=== PATIENT | male | born 1985 | race Caucasian/White ===

== ENCOUNTER 2017-04-05 23:05 | Inpatient (IN) ==
[2017-04-05] MEDS ORDERED: Vancomycin 1,500 MG in D5% in Water 250 ML IVPB ONE (23:45)
[2017-04-05] MEDS ORDERED: 0.9 % Sodium Chloride 1,000 ML IVC ONE (23:58)
--- NOTE | 2017-04-06 00:08 | Emergency Department Note ---
Disposition Clinical Impression: Abscess of skin or subcutaneous tissue Qualifiers: Site of cutaneous abscess: extremity Site of cutaneous abscess of extremity: upper extremity Laterality: left Qualified Code(s): L02.414 - Cutaneous abscess of left upper limb Cellulitis Qualifiers: Site of cellulitis: extremity Site of cellulitis of extremity: upper extremity Laterality: left Qualified Code(s): L03.114 - Cellulitis of left upper limb Disposition: Admitted As Inpatient Condition: Fair Time of Disposition: 03:00 Skin/Abscess/FB HPI Chief complaint: ED Skin/Abscess/Foreign Body Stated complaint: "Infection left arm" Time Seen by Provider: 04/05/17 23:15 Source: patient Limitations: no limitations Nursing Notes Reviewed: Yes Vital Signs Reviewed: Yes HPI Narrative: Patient is a 31-year-old male who presents to [facility] ED with a chief complaint of left arm infection. Patient is a known IV drug user and last injected approximately 2 weeks ago. One week ago, he had worsening redness of his right upper extremity. He now has pain with bending his arm. Denies any known fevers or chills. No chest pain, difficulty breathing, abdominal pain, problems with urination or bowel movements. Onset (ago): day(s) Tetanus Up to Date: yes Location: LUE Severity: severe Severity scale (1-10): 10 Quality: aching Consistency: constant Improves with: none Worsens with: none Context: IVDA Associated symptoms: Denies: fever, chills, nausea, vomiting, shortness of breath Treatments prior to arrival: none Previous Rx's Medication Instructions Recorded Amoxicillin 875 mg PO BID #20 tablet 04/05/16 Ibuprofen [Motrin] 800 mg PO Q8HR PRN #30 tablet 04/05/16 Magic Mouthwash 5 ml PO TID PRN #120 ml 04/05/16 Magic Mouthwash 5 ml PO TID PRN #120 ml 04/05/16 Polymyxn-B/Trimeth Opth Drops 1 drop LEFT EYE QID 7 Days bottle 04/05/16 [Polytrim Opth Drops] Ibuprofen [Motrin] 600 mg PO Q8HR #20 tab 04/24/16 Allergies Allergy/AdvReac Type Severity Reaction Status Date / Time No Known Allergies Allergy Verified 04/24/16 22:02 All systems ED: reviewed and negative except as stated. Past Medical History - Past Medical History Attestation: Yes The following information was validated with the patient. Source: patient Medical history: Reports: other Surgical history: Reports: no surgical history Psychiatric history: Reports: no psych history - Social History Smoking Status: Current every day smoker Smokeless Tobacco Status: No Alcohol use: Reports: occasionally Drug use: Reports: opiates, marijuana, IV Drug Use, prescription drug abuse Physical Exam - General Limitations: no limitations General appearance: alert, in no apparent distress - Head Head exam: atraumatic, normocephalic, normal inspection - Eye Eye exam: Present: normal appearance, EOMI - ENT ENT exam: normal exam, normal oropharynx, mucous membranes moist - Neck Neck exam: Present: normal inspection, full ROM, trachea midline - Chest Chest inspection: Present: normal inspection, symmetric chest wall rise - Respiratory Respiratory exam: Present: normal lung sounds bilaterally - Cardiovascular Cardiovascular exam: Present: normal rhythm, tachycardia - Abdominal Exam Abdominal exam: Present: soft, Non-Tender. Absent: tenderness, distention, guarding, rebound, rigidity - Expanded Upper Extremity Exam Arm exam: Present: tenderness, swelling, erythema - Back Exam Back exam: Present: normal inspection, full ROM. Absent: tenderness - Neurological Exam Neurological exam: Present: alert, oriented X3 - Psychiatric Psychiatric exam: Present: normal affect, normal mood - Skin Skin exam: Present: warm, dry, intact, erythema (LUE) Course Course Narrative: Patient seen and examined. Left upper extremity pain, swelling, erythema. Concern for cellulitis/abscess formation. We will get a CT of the arm with IV contrast. We will get CBC, BMP, lactate, blood cultures. We will go ahead and start her on IV vancomycin as well. - Reevaluation(s) Reevaluation #1: Lab work appeared unremarkable. CT of the arm showed abscess in the antecubital fossa that was deep to superficial vein. Will admit for continued IV antibiotics. Added clindamycin as well. Patient needs incision and drainage of this in the OR. I discussed with orthopedics surgeon Dr. Bonilla who states they will likely dual incision and drainage of this today and patient will be need to be Nothing by mouth. Time: 03:00 Vital Signs Temperature 98.7 F 04/05/17 23:06 Pulse Rate 105 04/05/17 23:06 Respiratory Rate 18 04/05/17 23:06 Blood Pressure 152/98 04/05/17 23:06 O2 Sat by Pulse Oximetry 99 04/05/17 23:06 Temperature 97.8 F 04/06/17 06:46 Pulse Rate 69 04/06/17 06:46 Respiratory Rate 18 04/06/17 06:46 Blood Pressure 134/94 04/06/17 06:46 O2 Sat by Pulse Oximetry 100 04/06/17 06:46 Oxygen Delivery Oxygen Delivery Room Air Skin/Abscess/Foreign Body - Medical Records Medical records reviewed: Yes I reviewed the patient's medical records. - Lab Data Lab results reviewed: Yes I reviewed the patient's lab results. Result diagrams: 04/06/17 00:13 04/06/17 00:13 Lab Results 04/06/17 04/06/17 04/06/17 Range/Units 00:13 00:13 00:13 WBC 8.3 (4.3-11.1) K/mcL RBC 5.66 H (4.19-5.50) M/mcL Hgb 16.7 (12.9-16.9) g/dL Hct 49.7 (37.5-50.1) % MCV 87.8 (83.0-100.0) fL MCH 29.5 (28.0-33.3) pg MCHC 33.6 (31.6-35.5) g/dL RDW 12.9 (11.5-14.5) % Plt Count 289 (140-400) K/mcL MPV 9.1 L (9.4-12.4) fL Immature Gran % 0.4 (0-4) % Seg Neutrophils % 55.1 % Lymphocytes % 30.4 % Monocytes % 11.8 % Eosinophils % 1.5 % Basophils % 0.8 % Neutrophils # 4.6 (1.6-8.9) K/mcL Lymphocytes # 2.5 (0.6-4.6) K/mcL Monocytes # 1.0 (0.0-1.3) K/mcL Eosinophils # 0.1 (0.0-0.6) K/mcL Basophils # 0.1 (0.0-0.2) K/mcL Sodium 135 L (136-145) mEq/L Potassium 4.0 (3.5-4.5) mEq/L Chloride 99 (98-109) mEq/L Carbon Dioxide 24 (19-29) mEq/L BUN 7 L (8-26) mg/dL Creatinine 1.09 (0.72-1.25) mg/dL Est GFR ( Amer) > 60 (> 60) Est GFR (Non-Af Amer) > 60 (> 60) BUN/Creatinine Ratio 6 (6-26) Glucose 87 (70-99) mg/dL Calculated Osmolality 277 L (280-300) Lactic Acid 1.7 (0.5-2.2) mmol/L Calcium 10.4 (8.6-10.8) mg/dL - Radiology Data Radiology results reviewed: Yes I reviewed the patient's radiology results. Upper Extremity CT 04/05/17 23:56 IMPRESSION: 1. Soft tissue abscess, 0.9 x 0.6 cm, in the antecubital fossae, approximately 2 cm deep to the skin surface and deep to a superficial vein. 2. Skin thickening and subcutaneous edema of the antecubital fossa compatible with cellulitis. 3. No evidence of soft tissue gas or radiopaque foreign body. 4. No acute osseous finding or CT evidence of osteomyelitis. D/ / Trevon Moulton MD / Trevon Moulton MD Interpreting Provider: Trevon Moulton MD Attestation Statement - Attestation Attestation: I examined this patient and my medical decision-making was reviewed with the Resident Physician. I agree with the documented findings, disposition and treatment plan as described except to the extent set forth below. Patient either vomiting or redness in his left arm. Onset a week ago. Patient has a history of IV drug use, but states he last used 2 weeks ago. He states his pain worsened after he was carrying some groceries. On examination he has swelling and induration to the left antecubital fossa. Erythema extending into the forearm. He is unable to extend his arm. Plan. Septic workup with CT scan. Starting IV antibiotic.
[2017-04-06 00:26] LABS: Basophils # 0.1 K/mcL (0.0-0.2); Basophils % 0.8 %; Eosinophils # 0.1 K/mcL (0.0-0.6); Eosinophils % 1.5 %; Hematocrit 49.7 % (37.5-50.1); Hemoglobin 16.7 g/dL (12.9-16.9); Immature Granulocytes % 0.4 % (0-4); Lymphocytes # 2.5 K/mcL (0.6-4.6); Lymphocytes % 30.4 %; Mean Corpuscular HGB Conc 33.6 g/dL (31.6-35.5); Mean Corpuscular Hemoglobin 29.5 pg (28.0-33.3); Mean Corpuscular Volume 87.8 fL (83.0-100.0); Mean Platelet Volume 9.1 fL (9.4-12.4); Monocytes % 11.8 %; Neutrophils # 4.6 K/mcL (1.6-8.9); Platelet Count 289 K/mcL (140-400); Red Blood Count 5.66 M/mcL (4.19-5.50); Red Cell Distribution Width 12.9 % (11.5-14.5); Segmented Neutrophils % 55.1 %
[2017-04-06 00:38] LABS: BUN/Creatinine Ratio 6 (6-26); Blood Urea Nitrogen 7 mg/dL (8-26); Calcium 10.4 mg/dL (8.6-10.8); Carbon Dioxide 24 mEq/L (19-29); Chloride 99 mEq/L (98-109); Glucose 87 mg/dL (70-99); Osmolality,Calculated 277 (280-300); Sodium 135 mEq/L (136-145); eGFR For African Americans > 60 (> 60); eGFR For Non-African Americans > 60 (> 60)
[2017-04-06] MEDS ORDERED: Clindamycin 900 MG/50 ML 900 MG/50 ML IV.SOLN IVPB ONE (00:46)
[2017-04-06] MEDS ORDERED: Ketorolac 15 MG/ML VIAL IVP PRN (08:49)
--- NOTE | 2017-04-06 08:53 | Internal Med History&Physical ---
Date of Encounter: 04/06/17 Time of Encounter: 08:51 Assessment and Plan (1) Abscess of skin or subcutaneous tissue Current visit: Yes Status: Acute Patient has cellulitis with abscess formation and antecubital area. We started the patient and vancomycin and Zosyn. Keep NPO and consult orthopedic surgery. Blood cultures were obtained. Patient shares needles with his brother and sister. I have discussed with him regarding blood-borne disease and will check for HIV and hepatitis. Qualifiers: Site of cutaneous abscess: extremity Site of cutaneous abscess of extremity : upper extremity Laterality: left Qualified Code(s): L02.414 - Cutaneous abscess of left upper limb Internal Medicine - H&P: HPI Chief complaint: pain and redeness in left antecubital area History of present illness: Mr. Desir is a 31 year old male who is an IV drug user last injection was 2 weeks ago. Approximately a week ago he started noticing redness warmth tenderness and swelling in the left antecubital area. 2 days ago he started having fevers and chills. He is holding his left upper extremity in flexion to minimize pain. Patient mentions that he shares needles with his brother and sisters. Workup and emergency room showed evidence of an antecubital abscess. Patient denies any chest pain and shortness of breath. Past Med Surg Social Fam HX - Past Medical History Medical history: other Psychiatric history: no psych history - Past Surgical History Surgical History: no surgical history - Social History Smoking Status: Current every day smoker Smokeless Tobacco Status: No Alcohol use: occasionally Drug use: opiates, marijuana, IV Drug Use, prescription drug abuse Internal Medicine - H&P: Meds Amoxicillin 875 mg PO BID #20 tablet 04/05/16 [Rx] Ibuprofen [Motrin] 800 mg PO Q8HR PRN #30 tablet 04/05/16 [Rx] Magic Mouthwash 5 ml PO TID PRN #120 ml 04/05/16 [Rx] Magic Mouthwash 5 ml PO TID PRN #120 ml 04/05/16 [Rx] Polymyxn-B/Trimeth Opth Drops [Polytrim Opth Drops] 1 drop LEFT EYE QID 7 Days bottle 04/05/16 [Rx] Ibuprofen [Motrin] 600 mg PO Q8HR #20 tab 04/24/16 [Rx] 3 Allergy/AdvReac Type Severity Reaction Status Date / Time No Known Allergies Allergy Verified 04/24/16 22:02 All Systems PM: A 10-system review of systems was performed and is negative for pertinent findings except as documented above in the HPI. Review of systems: 1 point review of systems is negative except for HPI - Constitutional Vitals: Temp Pulse Resp BP Pulse Ox 97.8 F 69 18 134/94 100 04/06/17 06:46 04/06/17 06:46 04/06/17 06:46 04/06/17 06:46 04/06/17 06:46 Exam: Gen.: patient is alert oriented times 3 cardiac: normal S1 S2 no additional sounds or murmurs chest: no active wheezing or bronchial breathing abdomen soft nontender nondistended normal bowel sounds lower extremity no swelling. Neuro: no new focal deficits muskloskletal: left antecubital area is red, warm. Patient is holding arm in flexion to minimize pain Internal Med - H&P Results - Labs CBC & Chem 7: 04/06/17 00:13 04/06/17 00:13
[2017-04-06] MEDS ORDERED: Vancomycin 1,250 MG in D5% in Water 250 ML IVPB SCH (09:00)
[2017-04-06 09:16] LABS: Basophils # 0.1 K/mcL (0.0-0.2); Basophils % 0.9 %; Eosinophils # 0.1 K/mcL (0.0-0.6); Hematocrit 43.1 % (37.5-50.1); Immature Granulocytes % 0.1 % (0-4); Lymphocytes # 3.2 K/mcL (0.6-4.6); Lymphocytes % 46.7 %; Mean Corpuscular HGB Conc 33.9 g/dL (31.6-35.5); Mean Corpuscular Hemoglobin 29.8 pg (28.0-33.3); Mean Platelet Volume 9.2 fL (9.4-12.4); Monocytes # 0.8 K/mcL (0.0-1.3); Monocytes % 11.7 %; Neutrophils # 2.6 K/mcL (1.6-8.9); Platelet Count 251 K/mcL (140-400); Segmented Neutrophils % 38.6 %
[2017-04-06 09:22] LABS: BUN/Creatinine Ratio 6 (6-26); Blood Urea Nitrogen 6 mg/dL (8-26); Calcium 9.4 mg/dL (8.6-10.8); Carbon Dioxide 22 mEq/L (19-29); Chloride 104 mEq/L (98-109); Glucose 154 mg/dL (70-99); Osmolality,Calculated 283 (280-300); Potassium 4.1 mEq/L (3.5-4.5); Sodium 136 mEq/L (136-145); eGFR For African Americans > 60 (> 60); eGFR For Non-African Americans > 60 (> 60)
[2017-04-06 09:23] LABS: Hemoglobin 14.6 g/dL (12.9-16.9)
[2017-04-06] MEDS: Famotidine 20 MG/2 ML VIAL IVP SCH (09:25)
--- NOTE | 2017-04-06 10:22 | Orthopedic Consult Note ---
Date of Encounter: 04/06/17 Time of Encounter: 10:19 Assessment and Plan (1) Abscess of skin or subcutaneous tissue Current Visit: Yes Status: Acute Pt is stable and respnding well to IV abx; however, there is a small deep abscess that will need to be drained. Pt just ate. He will be made NPO later and added on for an I&D of his left elbow. The procedure was discussed with the pt, including post-op wound care. Informed consent was obtained. Qualifiers: Site of cutaneous abscess: extremity Site of cutaneous abscess of extremity : upper extremity Laterality: left Qualified Code(s): L02.414 - Cutaneous abscess of left upper limb History of Present Illness Chief complaint: Left Elbow Pain and swelling HPI: Mr. Desir is a 31 year old male with a history of IV drug abuse. Patient states he was shot up in his left elbow 2 weeks ago and started noting setting some redness, swelling and pain over the past week. The pain and redness increased significantly to the point that brought him to the Emergency Room last night. A CT scan performed showed an abscess. Pt noticed the redness down since last night after being placed on IV abx. Pt denies fecers or chills. No prior h/o abscesses. Past Med Surg Social Fam HX - Past Medical History Medical history: other Psychiatric history: no psych history - Past Surgical History Surgical History: no surgical history - Social History Smoking Status: Current every day smoker Smokeless Tobacco Status: No Alcohol use: occasionally Drug use: opiates, marijuana, IV Drug Use, prescription drug abuse Medications and Allergies No Known Home Drugs 04/06/17 [History] 3 Allergy/AdvReac Type Severity Reaction Status Date / Time No Known Allergies Allergy Verified 04/24/16 22:02 All Systems Reviewed: A 10-system review of systems was performed and is negative for pertinent findings except as documented above in the HPI. Physical Exam - Constitutional Vitals: Temp Pulse Resp BP Pulse Ox 97.8 F 69 18 134/94 100 04/06/17 06:46 04/06/17 06:46 04/06/17 06:46 04/06/17 06:46 04/06/17 06:46 - Elbow left Location of pain elbow: anterior Pain modifiers elbow: with motion Stiffness: Yes Swelling: Yes Other symptoms OR: other (+ erythema of antecubittal fossa; Normal hand exam distally. NVID) Tenderness with palpation: other (2 cm indurated area in the antecubital fossa just proximal to the elbow flexion crease but is very tender, skin is warm to touch, no crepitus or fluctuance) Full ROM: yes (with pain) Results - Labs Result Diagrams: 04/06/17 08:55 04/06/17 08:55 Labs: Abnormal lab results MPV 9.2 fL (9.4-12.4) L 04/06/17 08:55 BUN 6 mg/dL (8-26) L 04/06/17 08:55 Glucose 154 mg/dL (70-99) H 04/06/17 08:55 H & H 04/06/17 Range/Units 08:55 Hgb 14.6 D (12.9-16.9) g/dL Hct 43.1 (37.5-50.1) % All other labs normal. - Diagnostic results Elbow CT: report reviewed (0.9 cm abscess in antecub fossa, located deep to large vein) Consult Discharge Plan - Plan Referrals: NONE,PCP [Primary Care Provider] -
[2017-04-06] MEDS: Vancomycin 1,250 MG in D5% in Water 250 ML IVPB SCH (11:38)
[2017-04-06] MEDS: Piperacillin/Tazobactam 3.375 GM in D5% in Water (Mini-Bag+) 100 ML IVPB SCH (15:35)
[2017-04-07] MEDS: Piperacillin/Tazobactam 3.375 GM in D5% in Water (Mini-Bag+) 100 ML IVPB SCH ×2 (00:55→11:56)
[2017-04-07] MEDS: Vancomycin 1,250 MG in D5% in Water 250 ML IVPB SCH (01:02)
[2017-04-07] MEDS ORDERED: *HR* Propofol 200 MG/20 ML VIAL IVP ONE (07:19)
[2017-04-07] MEDS ORDERED: Lidocaine -MPF 2% 2 ML VIAL ONE (07:20)
[2017-04-07] MEDS ORDERED: *HR* Succinylcholine 200 MG/10 ML VIAL IVP ONE (07:20)
[2017-04-07] MEDS ORDERED: *HR* FentaNYL (PF) 100 MCG/2 ML VIAL ONE (07:23)
[2017-04-07] MEDS ORDERED: *HR* Midazolam HCl 2 MG/2 ML VIAL ONE (07:24)
[2017-04-07] MEDS ORDERED: Albuterol 2.5 MG/3 ML NEBULIZER ONE (07:28)
[2017-04-07] MEDS ORDERED: Albuterol 2.5 MG/3 ML NEBULIZER IH ONE (07:30)
[2017-04-07] MEDS ORDERED: Scopolamine Patch 1.5 MG PATCH.TD72 ONE (07:36)
[2017-04-07] MEDS ORDERED: *HR* Promethazine 25 MG/ML VIAL IVP PRN (07:42)
--- NOTE | 2017-04-07 07:42 | Anesthesia Evaluation PreOp ---
Date of Encounter: 04/07/17 Time of Encounter: 07:40 - Past History Planned Operation: I&D LUE Cardiac History: Denies any Significant Hx Pulmonary History: Smoker, JOE Dx (sleep apnea as a child (prior to tonsillectomy)) [employer] History: Denies Any Significant HX Other Medical History: Other (IVDU) Anesthesia History: No Prior Anesthetic Complications (except nausea once), Past Anesthesia (arterial repair upper extremity, tonsillectomy) Alcohol Use: occasionally Drug use: opiates, marijuana, IV Drug Use, prescription drug abuse Medications and Allergies No Known Home Drugs 04/06/17 [History] 3 Allergy/AdvReac Type Severity Reaction Status Date / Time No Known Allergies Allergy Verified 04/24/16 22:02 - Meds/Allergy Pre-op Review Medications Reviewed: Yes Allergies Reviewed: Yes Beta Blockers on Current Med List: No Anesthesia Results - Labs 04/06/17 08:55 04/06/17 08:55 Anesthesia Exam Last Vital Signs Temp 97.8 F 04/07/17 06:49 Pulse 67 04/07/17 06:49 Resp 18 04/07/17 06:49 BP 116/83 04/07/17 06:49 Pulse Ox 99 04/07/17 06:49 Weight: 86 kg NPO (# of Hours): > 8 hrs - HEENT Pupil (Motor): Pupils equal, EOMI Mallampati: II Teeth: Normal Oral Opening: Greater than 3 - [employer] LOC: Oriented - Cardiac Rhythm: Regular Murmur: None - Pulmonary Breath Sounds: bilateral Clear Respiratory Effort: Symmetrical Anesthesia Assess/Plan ASA Score: 2 Modified Yanira Scale for Level of Consciousness: Cooperative, oriented, and tranquil Anesthetic Plan: General Monitoring Plan: Standard Monitors Recovery Plan: PACU
[2017-04-07] MEDS ORDERED: Ringers Solution, Lactated 1,000 ML IVC SCH ×2 (07:45→11:59)
[2017-04-07] MEDS ORDERED: Dexamethasone 4 MG/ML VIAL ONE (09:30)
[2017-04-07] MEDS ORDERED: Ondansetron 4 MG/2 ML VIAL ONE (09:30)
[2017-04-07] MEDS ORDERED: Ketorolac 30 MG/ML VIAL ONE (09:58)
[2017-04-07] MEDS: *HR* HYDROmorphone (PF) 1 MG/ML SYRINGE IVP PRN ×4 (10:18→10:34)
--- NOTE | 2017-04-07 10:25 | Operative Note ---
Date of procedure: 04/07/17 Pre-op diagnosis: Left elbow abscess Post-op diagnosis: same Procedure: Incision and drainage of deep left elbow abscess Anesthesia: NILSA Surgeon: Kalpesh Almanza Estimated blood loss (cc): 10 Tourniquet Time (Minutes): 5 Specimen: Cultures to microbiology Disposition: PACU Procedure in Detail: The patient was brought into the operating room and placed on or table in supine position. He underwent general anesthesia. A tourniquet was placed on his left arm close axilla, and the left upper extremity was prepped and draped in usual sterile fashion. A timeout was performed. The left extremity was elevated, exsanguinated with an Honorio wrap, and the tourniquet was raised to a pressure of 250 mmHg. A 6 cm medial curvilinear incision was made centered over the swollen fluctuant area of the elbow. The incision went from proximal medial curving at the elbow flexion crease and going laterally, going The subcutaneous tissues plane dissected, and and on deeper dissection, a pocket of pus was encountered. Cultures for aerobic and anaerobic were taken and sent off to microbiology. Retractors were used to get good exposure, the pocket was medial to the biceps which was retracted over laterally. The brachialis fascia was incised and the muscle explored. The muscle appeared to be in good condition. The patient had a 30 degree flexion contracture of the elbow, the elbow was gently stretched out , allowing full extension but with some effort. This was due to the swelling and edema within the anterior soft tissue including the muscles. The tourniquet was deflated, once again copiously irrigated with normal saline. The full-thickness skin and subcutaneous tissue was closed with 3-0 nylon vertical mattress and simple sutures. A 1 cm opening was left, and this was filled with quarter-inch iodoform packing. The patient was extubated and taken to the recovery room.
[2017-04-07] MEDS ORDERED: *HR* Morphine 2 MG/ML SYRINGE IVP PRN (10:31)
[2017-04-07] MEDS ORDERED: *HR* Labetalol 20 MG/4 ML SYRINGE IVP ONE (10:37)
[2017-04-07] MEDS ORDERED: *HR* Labetalol 20 MG/4 ML SYRINGE IVP PRN (10:41)
--- NOTE | 2017-04-07 10:54 | Anesthesia Evaluation Post Op ---
Date of Encounter: 04/07/17 Time of Encounter: 10:53 - Vital Signs Vital Signs: Last Vital Signs Temp 97.9 F 04/07/17 10:43 Pulse 77 04/07/17 10:43 Resp 12 04/07/17 10:43 BP 145/99 04/07/17 10:43 Pulse Ox 96 04/07/17 10:43 - Lungs Lungs: Clear Ascult./Percussion - Airway Airway: Non-obstructed - Cardiovascular Regular Rate - Mental Status Mental Status: Alert & Oriented, Answers Appropriately - Pain Pain Scale: 5 - Nausea Vomiting Nausea Vomiting: Not Present - Hydration Hydration: NPO - Discharge PostOp Status: Transfer Patient to floor
[2017-04-07] MEDS: Famotidine 20 MG/2 ML VIAL IVP SCH (11:56)
[2017-04-07] MEDS ORDERED: Ketorolac 15 MG/ML VIAL IVP PRN (11:59)
[2017-04-07] MEDS ORDERED: *HR* OxyCODONE/APAP 5/325 TABLET PO PRN (11:59)
[2017-04-07] MEDS ORDERED: Aminoglycoside Consult 1 EACH MC ONE (12:14)
--- NOTE | 2017-04-07 12:16 | Discharge Summary ---
Date of Encounter: 04/07/17 Time of Encounter: 12:09 - Discharge Diagnosis (1) Abscess of skin or subcutaneous tissue Priority: Primary Status: Acute Qualifiers: Site of cutaneous abscess: extremity Site of cutaneous abscess of extremity : upper extremity Laterality: left Qualified Code(s): L02.414 - Cutaneous abscess of left upper limb (2) Cellulitis Priority: Primary Status: Acute Qualifiers: Site of cellulitis: extremity Site of cellulitis of extremity: upper extremity Laterality: left Qualified Code(s): L03.114 - Cellulitis of left upper limb - Discharge Medications Prescriptions: Doxycycline 100 mg PO BID #14 capsule Home Medications: Doxycycline 100 mg PO BID #14 capsule 04/07/17 [Rx] Allergies/Adverse Reactions: 3 Allergy/AdvReac Type Severity Reaction Status Date / Time No Known Allergies Allergy Verified 04/24/16 22:02 Date of admission: 04/06/17 08:46 Primary care physician: PCP NONE Discharging clinician: Gerard Dee (]) Anticipated date of discharge: 04/07/17 - Patient Status Disposition: Left Against Medical Advice Condition: Fair Functional capacity at discharge: independent ambulation Overall status at discharge: patient is back to baseline - Discharge Instructions Follow Up With: NONE,PCP [Primary Care Provider] - - Diet and Activity Activity: resume usual activities as tolerated Diet: regular diet Interval History: See below Hospital course: Mr. Desir is a 31 year old male , IVDA, admitted for L antecubital cellulitis with deep abscess, seen immediate s/p Incision and drainage by Orthopedics. He reports he is getting dressed and leaving AMA right away He is unwilling to await culture reports He verbalized understanding of the risk of limb loss, sepsis from his cellulitis , septic shock, and Patient is provided scripts for doxycyline po bid for 7 days Follow up with PCP regarding his wound care, he states he will do "whatever" - Time Spent with Patient Total time spent providing and/or coordinating discharge services: Less than 30 minutes - Constitutional Vitals: Temp Pulse Resp BP Pulse Ox 97.9 F 75 16 144/101 98 04/07/17 10:53 04/07/17 10:53 04/07/17 10:53 04/07/17 10:53 04/07/17 10:53 General appearance: Present: A&O X 3, pleasant, no acute distress. Absent: answers questions appropriately - Head Head exam: Present: atraumatic, normocephalic - Eye Eye exam: Present: PERRL, conjuntiva pink, sclera anicteric Pupils: Present: PERRL - Neck Neck exam general surgery: Present: supple, trachea midline. Absent: lymphadenopathy - Respiratory Respiratory exam: Present: CTAB. Absent: accessory muscle use, rales, rhonchi, wheezes - Cardiovascular Cardiovascular exam: Present: RRR, +S1, +S2. Absent: diastolic murmur, gallop, rubs, systolic murmur - GI/Abdominal GI/Abdominal exam: Present: normal bowel sounds, soft, no peritoneal signs. Absent: distended, tenderness - Extremities Exam Extremities exam: Present: warm, radial pulses palpable and symmetrical. Absent : calf tenderness, cyanotic, pedal edema Additional comments: LUE dressing on his antecubital fossa - Neurological Exam Neurological exam: Present: alert, CN II-XII intact, oriented X3, no focal deficits. Absent: pronater drift, facial droop, speech deficit - Skin Skin exam: Present: dry, intact
[2017-04-07] MEDS ORDERED: Piperacillin/Tazobactam 3.375 GM in D5% in Water (Mini-Bag+) 100 ML IVPB SCH (12:30)
[2017-04-07] MEDS ORDERED: Vancomycin 1,250 MG in D5% in Water 250 ML IVPB SCH (13:00)
[2017-04-07 13:06] VITALS: BP 122/87
[2017-04-08 10:47] LABS: HIV-1&2 Antibody & p24 Ag Nonreactive (Nonreactive)
[2017-04-08 10:49] LABS: Hepatitis C Virus Antibody Reactive (Nonreactive)
== END 2017-04-07 12:15 | disposition left against medical advice (07) | DRG 364 ==
LOC: 3ANU 23:05 → EMEROO 23:05 → 3ANU 04-06 03:53
PROVIDERS: ADMIT Pediatrics; ATTEND Internal Medicine